=== PATIENT | female | born 1965 | race Hispanic/Latino ===

== ENCOUNTER 2022-12-02 21:45 | Emergency (ER) | payer OTHER ==
[~2022-12-02] VITALS: Ht 157.5 cm; Wt 122.0 kg
[2022-12-02 22:55] LABS: BASOPHILS % (AUTO) 1.1 % (0.0-5.0); EOSINOPHILS % (AUTO) 3.6 % (0.0-8.0); HEMATOCRIT 43.7 % (36-48); LYMPHOCYTES % (AUTO) 49.3 % (21.0-51.0); MEAN CORPUSCULAR HEMOGLOBIN 30.4 pg (27.0-33.0); MEAN CORPUSCULAR VOLUME 92.4 fL (79-99); MONOCYTES % (AUTO) 7.8 % (3.0-13.0); NEUTROPHILS % (AUTO) 38.1 % (40.0-77.0); PLATELET COUNT (AUTO) 228 K/uL (130-400); RED BLOOD CELL COUNT(AUTO) 4.73 MIL/uL (4.00-5.50); RED CELL DISTRIBUTION WIDTH 13.5 % (11.0-15.5); WHITE BLOOD COUNT (AUTO) 7.5 K/uL (4.8-10.8)
[2022-12-02 23:11] LABS: CREATININE 0.9 mg/dL (0.5-1.5); POTASSIUM 3.7 mmol/L (3.5-5.1)
[2022-12-02 23:13] LABS: ALBUMIN 3.6 g/dL (3.5-5.0); TOTAL PROTEIN, SERUM 7.2 g/dL (6.0-8.3)
[2022-12-02 23:39] VITALS: BP 125/60
[2022-12-02] MEDS ORDERED: IBUP-1493 PO (23:50)
[2022-12-02] MEDS ORDERED: PRED20TA3 PO (23:50)
== END 2022-12-02 23:59 | disposition home or self-care (01) ==
LOC: EDH 21:45
DX: G56.00 Carpal tunnel syndrome, unspecified upper limb (principal); R07.89 Other chest pain; I10 Essential (primary) hypertension; Z90.5 Acquired absence of kidney
CPT/HCPCS: 36415; 71045; 73090; 80053; 84484; 85025; 85378; 93005

== ENCOUNTER 2025-02-03 12:56 | Emergency (ER) | payer OTHER ==
[~2025-02-03] VITALS: Ht 157.5 cm; Wt 124.3 kg
[~2025-02-03 12:56] MED LIST: IBUP-1493 PO; PRED20TA3 PO
--- NOTE | 2025-02-03 13:32 | EKG ---
[facility] Test Date: 2025-02-03 Test Time: 13:01:02 Pat Name: GEOFF CORONADO Department: ED Room: Gender: F [employer]: [id number] : 1965 Requested By: ARABELLA HINSON Order Number: [id number] Reading MD: Jackson Sanford Measurements Intervals [place] Rate: 84 P: 12 [place]: 137 QRS: -1 QRSD: 77 T: 51 QT: 363 QTc: 428 Interpretive Statements Sinus rhythm Low voltage, precordial leads Compared to ECG 12/02/2022 21:41:31 No significant changes Electronically Signed On 02-04-2025 15:34:43 CDT by Jackson Sanford Please click the below link to view image of tracing.
[2025-02-03 13:42] LABS: IMMATURE GRANULOCYTE ABSOLUTE 0.01 K/uL (0-1); NUCLEATED RED BLOOD CELLS 0.0 % (0.0-0.19); PLATELET COUNT (AUTO) 246 K/uL (130-400); RED BLOOD CELL COUNT(AUTO) 4.66 MIL/uL (4.00-5.50); RED CELL DISTRIBUTION WIDTH 13.8 % (11.0-15.5); WHITE BLOOD COUNT (AUTO) 8.2 K/uL (4.8-10.8)
[2025-02-03 13:53] LABS: CREATININE 0.8 mg/dL (0.5-1.0); GLOMERULAR FILTR. RATE CALC 85.0 mL/min (>90); GLUCOSE,RANDOM 117.0 mg/dL (70-105); SODIUM SERUM 141.0 mmol/L (136-145); UREA NITROGEN, BLOOD 14.0 mg/dL (7-18)
[2025-02-03 13:58] LABS: CREATINE KINASE, TOTAL 99.0 U/L (21-232)
--- NOTE | 2025-02-03 15:00 | HMCIMG ---
EXAM: CR Chest, 1 View. CLINICAL HISTORY: cp COMPARISON: None provided. FINDINGS: LUNGS: The lungs show no infiltrate or other acute finding. PLEURAL SPACES: No evidence of pleural effusion or pneumothorax. MEDIASTINUM: Cardiac size and mediastinal contours within normal limits. BONES: No aggressive appearing osseous lesion seen. IMPRESSION: No acute cardiopulmonary pathology is evident. /[place]
--- NOTE | 2025-02-03 16:18 | ERN ---
General Chief Complaint: Chest Pain Stated Complaint: CHEST PAIN Time Seen by MD: 15:34 History of Present Illness Initial Comments 59-year-old female came in for chest pain. Patient states that since arrival which has been has resolved. Patient otherwise has been no concerns. Allergies: Coded Allergies: Penicillins (Unverified Allergy, Unknown, 02/03/25) Home Meds Active Scripts Prednisone (Prednisone) 20 Mg Tablet, 1 TAB PO AD for 6 Days, #14 TAB 0 Refills TAKE 3 TAB BY MOUTH daily X3 DAYS, THEN TAKE 2 TAB BY MOUTH daily X2 DAYS, THEN TAKE 1 TAB BY MOUTH ONCE A DAY X1 DAY. Prov:MELBA GIRALDO MD 12/02/22 Ibuprofen (Motrin/Advil) 800 Mg Tab, 800 MG PO TIDP PRN for PAIN, #30 TAB Prov:MELBA GIRALDO MD 12/02/22 Past Medical History Past Medical History: Hypertension Medical History Other: SOLITARY KIDNEY Past Surgical History: Other Surgical History Other: SOLITARY KIDNEY Family History Family History: Negative Social History Social History: Negative, Lives with family ROS Dictation Chest pain Physical Exam Physical Exam Dictation VITAL SIGNS: Reviewed. GENERAL APPEARANCE: Alert, oriented x3, no acute distress, obese. HEAD AND FACE: Non-traumatic. EYES: PERRL, pink conjunctivas, eyelid no trauma, anterior chamber clear. EARS: Pinnas intact and no signs of trauma or erythema. Ear canals clear and no discharge. TMs no erythema. NOSE: No discharge, no bleeding. OROPHARYNX: Mouth normal, teeth no caries, tongue pink. Pharynx clear, no erythema. Tonsils no exudates, no abscesses noted. Mucous membrane moist. NECK: Supple, non-tender, no thyromegaly, no masses, no JVD, no bruits. BREAST: Deferred. CHEST: No tenderness, no crepitus, no paradoxical movement, no retractions. LUNGS: Clear, well-ventilated, symmetric, no rales, no wheezing, no rhonchi, no stridor, good breath sounds bilaterally. HEART: Regular rate, regular rhythm, no murmur, no gallops. VASCULAR: No peripheral edema. ABDOMEN: Soft, positive bowel sounds, nondistended, no guarding, nontender, no rebound, no masses no hepatomegaly, no splenomegaly, no Fermin's sign, no hernias. RECTAL: Deferred. GENITAL: Deferred. NEUROLOGICAL: Normal speech, gross motor function intact, gross sensory function intact. MUSCULOSKELETAL: Neck nontender, full range of motion, back nontender, full range of motion. EXTREMITIES: Nontender, full range of motion. SKIN: Color pink, dry, no turgor, no rash, no lacerations, no abrasions, no contusions. LYMPHATICS: Deferred. Results Laboratory and Microbiology Lab and Micro Result Laboratory Tests Test 02/03/25 13:28 White Blood Count 8.2 K/uL (4.8-10.8) Red Blood Count 4.66 MIL/uL (4.00-5.50) Hemoglobin 14.4 g/dL (12.0-16.0) Hematocrit 43.2 % (36-48) Mean Corpuscular Volume 92.7 fL (79-99) Mean Corpuscular Hemoglobin 30.9 pg (27.0-33.0) Mean Corpuscular Hemoglobin Concent 33.3 g/dL (32.0-36.0) Red Cell Distribution Width 13.8 % (11.0-15.5) Platelet Count 246 K/uL (130-400) Mean Platelet Volume 10.8 fL (7.5-10.5) H Immature Granulocyte % (Auto) 0.1 % (0-1) Neutrophils (%) (Auto) 46.9 % (40.0-77.0) Lymphocytes (%) (Auto) 40.1 % (21.0-51.0) Monocytes (%) (Auto) 8.3 % (3.0-13.0) Eosinophils (%) (Auto) 3.5 % (0.0-8.0) Basophils (%) (Auto) 1.1 % (0.0-5.0) Neutrophils # (Auto) 3.8 K/uL (1.8-7.7) Lymphocytes # (Auto) 3.3 K/uL (1.0-4.8) Monocytes # (Auto) 0.7 K/uL (0.1-1.0) Eosinophils # (Auto) 0.29 K/uL (0.00-0.70) Basophils # (Auto) 0.09 K/uL (0.00-0.20) Absolute Immature Granulocyte (auto 0.01 K/uL (0-1) Nucleated Red Blood Cells 0.0 % (0.0-0.19) Sodium Level 141 mmol/L (136-145) Potassium Level 4.2 mmol/L (3.5-5.1) Chloride Level 106 mmol/L (101-111) Carbon Dioxide Level 22 mmol/L (21-32) Blood Urea Nitrogen 14 mg/dL (7-18) Creatinine 0.8 mg/dL (0.5-1.0) Glomerular Filtration Rate Calc 85 mL/min (>90) Random Glucose 117 mg/dL (70-105) H Total Calcium 8.7 mg/dL (8.5-10.1) Magnesium Level 1.90 mg/dL (1.80-2.40) Total Creatine Kinase 99 U/L (21-232) Troponin I High Sensitivity 12 ng/L (4-50) B-Type Natriuretic Peptide 16 pg/mL (0-100) MDM MDM: Differential diagnosis: Rationale: Tests considered and ordered secondary to shared decision making include: Previous outside records reviewed: Old ER visits. Risk of complication and/or morbidity or mortality of patient management: None Medications-Per medication reconciliation Need for hospitalization: Patient does not meet criteria for hospitalization. Need for emergency major/minor surgery: No There are no social concerns with this patient. Prescription drug management Prescriptions will include symptomatic care Patient's prior external medical records from other ER visits were reviewed by me as indicated. Prior testing and results from previous visits were reviewed. Prior tests were taken into account with medical decision making and resource utilization, independent historian/historians were used to obtain complete medical history. I independently interpreted the test that were performed, results were reviewed by me and considered findings on radiology if ordered. Medical management and examination interpretation discussions were had by me with other qualified healthcare professionals as indicated for the patient's care. ED Course Orders Procedure Category Date Status Time 12 Lead Ekg Tracing- EKG 02/03/25 Complete Technical 13:04 Cbc With Differential LAB 02/03/25 Complete 13:10 Basic Metabolic Panel LAB 02/03/25 Complete 13:10 B-Type Natriuretic LAB 02/03/25 Complete Peptide 13:10 Creatine Kinase, Total LAB 02/03/25 Complete 13:10 Magnesium LAB 02/03/25 Complete 13:10 Troponin I High LAB 02/03/25 Complete Sensitivity 13:10 Chest 1vw RAD 02/03/25 Resulted 13:10 Vital Signs Date Time Temp Pulse Resp B/P (MAP) Pulse Ox O2 Delivery O2 Flow Rate FiO2 02/03/25 15:00 98.2 80 18 129/75 95 Room Air* 0 21 02/03/25 13:59 80 18 147/73 95 Room Air* 0 21 02/03/25 13:11 98.2 83 16 161/81 95 Room Air 0 DX & DISP Disposition: Discharge Departure Impression: Primary Impression: Chest wall pain Condition: Stable Referrals: ORVILLE SMITH (PCP) MYLES AWAN MD Feb 03, 2025 16:18
[2025-02-03 16:33] VITALS: BP 134/76; PULSE 80; RESP 18; TEMP 98.2; O2SAT 95
== END 2025-02-03 16:33 | disposition home or self-care (01) ==
LOC: EDH 12:56
DX: R07.89 Other chest pain (principal); I10 Essential (primary) hypertension; Z88.0 Allergy status to penicillin
CPT/HCPCS: 36415; 71045; 80048; 82550; 83735; 83880; 84484; 85025; 93005; 99285